=== PATIENT | female | born 2000 | race Caucasian/White ===

== ENCOUNTER 2021-01-10 12:50 | Inpatient (IN) | payer OTHER ==
[2021-01-10 13:02] VITALS: BMI 30.2
[2021-01-10] MEDS ORDERED: ACETAMINOPHEN 1000 MG/100 ML VIAL IVPB ONE (14:28)
[2021-01-10] MEDS ORDERED: SODIUM CHLORIDE 1,000 ML IV STA (14:28)
[2021-01-10] MEDS ORDERED: ACETAMINOPHEN INJECTION 100 ML IVPB ONE (15:06)
[2021-01-10 15:10] LABS: HEMOGLOBIN 7.9 GM/dL (10.7-15.3); MCH 28.6 pg (25.7-33.7); MCHC 34.4 g/dl (32.0-36.0); MEAN CELL VOLUME 83.2 fl (80-96); MEAN PLT VOLUME 7.1 fl (7.5-11.1); PLATELET COUNT 188 10^3/uL (134-434); RBC 2.77 M/mm3 (3.60-5.2); RDW 13.2 % (11.6-15.6)
[2021-01-10 15:29] LABS: INR 1.15 (0.83-1.09); PROTHROMBIN TIME (PATIENT) 13.5 SEC (9.7-13.0)
[2021-01-10 15:31] LABS: ACTIVATED PTT 27.5 SECONDS (25.2-36.5)
[2021-01-10 15:53] LABS: ANISOCYTOSIS 0; MACROCYTOSIS 0; PLATELET ESTIMATE NORMAL
[2021-01-10 16:16] LABS: WHITE BLOOD COUNT 31.4 K/mm3 (4.0-10.0)
[2021-01-10 16:45] LABS: ALBUMIN 3.4 g/dl (3.4-5.0); BLOOD UREA NITROGEN 14.8 mg/dL (7-18); CALCIUM 8.6 mg/dL (8.5-10.1)
[2021-01-10 16:49] LABS: CREATININE 0.8 mg/dL (0.55-1.3)
[2021-01-10 16:50] LABS: BILIRUBIN,TOTAL 0.4 mg/dL (0.2-1); TOT PROT 7.6 g/dl (6.4-8.2)
[2021-01-10 16:55] LABS: EPI CELLS 10 /uL (0-25.1); HYALINE CASTS 1 /uL (0-3.1); URINE APPEARANCE CLEAR; URINE BACTERIA 121 /uL (0-1359); URINE BILIRUBIN NEGATIVE (NEGATIVE); URINE COLOR YELLOW; URINE GLUCOSE (UA) NEGATIVE (NEGATIVE); URINE KETONE NEGATIVE (NEGATIVE); URINE LEUK ESTERASE NEGATIVE (NEGATIVE); URINE NITRITE NEGATIVE (NEGATIVE); URINE PROTEIN NEGATIVE (NEGATIVE); URINE RBC 12 /uL (0-23.9); URINE WBC 4 /uL (0-25.8)
[2021-01-10 16:56] LABS: HCG,QUALITATIVE URINE Negative
[2021-01-10] MEDS ORDERED: ACETAMINOPHEN 325 MG TABLET (FP) PO PRN (17:22)
[2021-01-10 18:18] LABS: PHOSPHOROUS 3.8 mg/dL (2.5-4.9); URIC ACID 5.8 mg/dL (2.6-7.2)
[2021-01-10 20:27] VITALS: BP 139/92; PULSE 130
[2021-01-11 19:28] VITALS: TEMP 98.4
== END 2021-01-11 00:35 | disposition short-term general hospital (02) | DRG 690 ==
LOC: JER 12:50 → JERBED 16:44
PROVIDERS: ADMIT Internal Medicine; ATTEND Internal Medicine
DX: C91.00 Acute lymphoblastic leukemia not having achieved remission (principal)
CPT/HCPCS: 36415; 70491-TC; 71046-TC-FY; 71275-TC; 80053; 81003; 82550; 83615; 84100; 84439; 84443; 84484; 84550; 84703; 85025; 85379; 85610; 85730; 87086; 87804; 87807; 93005; 93010; 99285-25; C9803; J0131; U0003; U0005

== ENCOUNTER 2021-02-17 21:26 | Emergency (ER) | payer OTHER ==
[2021-02-17 21:40] VITALS: BMI 29.5
[2021-02-17] MEDS ORDERED: ACETAMINOPHEN 1000 MG/100 ML VIAL IVPB ONE (22:11)
[2021-02-17] MEDS ORDERED: ACETAMINOPHEN INJECTION 100 ML IVPB ONE (22:19)
[2021-02-17] MEDS ORDERED: LACTATED RINGERS SOLUTION 1000 ML INFUS.BAG IV ONE (22:34)
[2021-02-17 23:38] LABS: EPI CELLS 6 /uL (0-25.1); HYALINE CASTS 0 /uL (0-3.1); URINE APPEARANCE CLEAR; URINE BACTERIA 15 /uL (0-1359); URINE BILIRUBIN NEGATIVE (NEGATIVE); URINE COLOR YELLOW; URINE GLUCOSE (UA) NEGATIVE (NEGATIVE); URINE KETONE NEGATIVE (NEGATIVE); URINE LEUK ESTERASE NEGATIVE (NEGATIVE); URINE NITRITE NEGATIVE (NEGATIVE); URINE PROTEIN NEGATIVE (NEGATIVE); URINE RBC 8 /uL (0-23.9); URINE UROBILINOGEN 0.2 mg/dL (0.2-1.0); URINE WBC 3 /uL (0-25.8)
[2021-02-17 23:50] LABS: HEMATOCRIT 32.5 % (32.4-45.2); HEMOGLOBIN 11.2 GM/dL (10.7-15.3); MCH 30.4 pg (25.7-33.7); MCHC 34.5 g/dl (32.0-36.0); MEAN CELL VOLUME 88.1 fl (80-96); RBC 3.69 M/mm3 (3.60-5.2)
[2021-02-18 00:16] LABS: CALCIUM 8.5 mg/dL (8.5-10.1)
[2021-02-18 00:17] LABS: ALBUMIN 3.7 g/dl (3.4-5.0); BLOOD UREA NITROGEN 10.4 mg/dL (7-18)
[2021-02-18 00:20] LABS: CREATININE 0.8 mg/dL (0.55-1.3)
[2021-02-18 00:21] LABS: BILIRUBIN,TOTAL 0.8 mg/dL (0.2-1)
[2021-02-18 00:22] LABS: TOT PROT 7.3 g/dl (6.4-8.2)
[2021-02-18 01:12] LABS: ANISOCYTOSIS 2+; MACROCYTOSIS 0; PLATELET ESTIMATE NORMAL; TEAR DROP CELLS 1+
[2021-02-18 01:16] LABS: MEAN PLT VOLUME 8.7 fl (7.5-11.1); PLATELET COUNT 286 10^3/uL (134-434)
[2021-02-18 01:56] LABS: URIC ACID 4.7 mg/dL (2.6-7.2)
[2021-02-18 02:44] VITALS: BP 119/80; PULSE 105; TEMP 98.4
== END 2021-02-18 02:44 | disposition home or self-care (01) ==
LOC: JER 21:26
PROC: 3E033NZ Introduction of Analgesics, Hypnotics, Sedatives into Peripheral Vein, Percutaneous Approach (ICD-10-PCS; principal; 2021-02-17)
DX: R50.9 Fever, unspecified (principal); Z11.52 Encounter for screening for COVID-19
CPT/HCPCS: 36415; 71045-TC-FY; 80053; 81003; 84550; 84703; 85025; 87040; 87086; 87804; 87807; 93005; 93010; 96374; 99284-25; C9803; J0131; U0003; U0005